=== PATIENT | female | born 1965 | race Caucasian/White ===

== ENCOUNTER 2016-06-01 22:41 | Inpatient (IN) ==
[2016-06-01] MEDS ORDERED: Naloxone 0.4 MG/ML INJ IVP ONE (22:52)
--- NOTE | 2016-06-01 22:56 | Emergency Department Note ---
Disposition Clinical Impression: LINNEA (acute kidney injury) Accidental opiate poisoning Qualifiers: Encounter type: initial encounter Qualified Code(s): T40.601A - Poisoning by unspecified narcotics, accidental (unintentional), initial encounter Pneumonia Qualifiers: Pneumonia type: aspiration pneumonia Aspiration pneumonia type: due to vomit Laterality: right Lung location: upper lobe of lung Qualified Code(s): J69.0 - Pneumonitis due to inhalation of food and vomit Disposition: Admitted As Inpatient Condition: Good Time of Disposition: 01:50 Altered Mental Status HPI - General Chief Complaint: ED Altered Mental Status Stated Complaint: Lethargic / AMS Time Seen by Provider: 06/01/16 22:52 Source: family, EMS Mode of arrival: EMS Limitations: no limitations Nursing Notes Reviewed: Yes Vital Signs Reviewed: Yes - History of Present Illness HPI Narrative: 50-year-old female with extensive history of head and neck cancer arrives to [facility] emergency department after the states that she has not been awake like she normally is. The patient was recently started on new pain medication. She is a tracheostomy patient. The patient also has prescribed fentanyl patches. Upon arrival to the emergency department the patient is somnolent but arousable. Her O2 sat is 65%. She was immediately suctioned in her tracheostomy as well as ministered point for IV Narcan. The patient immediately woke up and was answering questions. Her O2 sat is currently 98%. Initial glucose was 124 by EMS. MD complaint: altered mental status Onset (ago): unknown Timing confirmed by: spouse Context: cancer Associated symptoms: Reports: denies other symptoms Treatments prior to arrival: IV fluid - Related Data Home Medications Medication Instructions Recorded Confirmed Gabapentin 500 mg PO Q8H 12/16/15 04/18/16 Aspirin [Lo-Dose Aspirin EC] 81 mg PO DAILY 03/15/16 04/18/16 Atorvastatin [Lipitor] 40 mg PO HS 03/15/16 04/18/16 Fluticasone/Salmeterol [Advair 1 each IH DAILY 03/15/16 04/18/16 100-50 Diskus] Ipratropium/Albuterol Sulfate 4 gm IH QID 03/15/16 04/18/16 [Combivent Respimat Inhal [place]] Metoprolol [Lopressor] 25 mg PO BID 03/15/16 04/18/16 Mometasone/Formoterol [Dulera 100 13 gm IH DAILY 03/15/16 04/18/16 Mcg/5 Mcg Inhaler] Nut.tx.comp. Immune Systm,Reg 1 unit GTUBE 5XD 03/15/16 04/18/16 [Pivot 1.5 Bhavin] Polyethylene Glycol 1000 1 pack PO DAILY 03/15/16 04/18/16 [Polyethylene Glycol] Sennosides [Senokot] 8.6 mg PO DAILY 03/15/16 04/18/16 OxyCODONE Immed Rel [Roxicodone 15 30 mg PO Q4H PRN 03/29/16 04/18/16 MG] Previous Rx's Medication Instructions Recorded Acetaminophen 15 ml PO TID PRN #120 ml 03/15/16 Supplies [SUPPLIES] 1 each GTUBE Q4D #120 each 04/06/16 Dexamethasone [Decadron] 1 tab PO BID #10 tablet 04/10/16 Magic Mouthwash 5 ml PO TID PRN #240 mls 04/10/16 Omeprazole [PriLOSEC] 20 mg PO DAILY #30 cap 04/10/16 Ondansetron HCl [Zofran] 4 mg PO Q6H PRN #30 tablet 04/10/16 Prochlorperazine Maleate 10 mg PO Q6HR #30 tablet 04/10/16 [Compazine] Desitin (Zinc Oxide) [Desitin] 1 appl TP BID #1 tube 04/18/16 HydrOXYzine Pamoate [Vistaril] 100 mg PO DAILY #30 capsule 04/18/16 Dexamethasone [Decadron] 4 mg PO DAILY #30 tab 04/25/16 Polyethylene Glycol 3350 [MiraLAX 1 scoop PO DAILY #1 tub 05/01/16 Powder Bulk 17.9 Oz] Magnesium Citrate [Citroma] 296 ml PO DAILY #2 solution 05/02/16 Escitalopram [Lexapro] 10 mg PO DAILY #30 tablet 05/09/16 Citalopram [CeleXA] 20 mg PO DAILY #30 tablet 05/16/16 Fluconazole [Diflucan] 100 mg PO DAILY #7 tablet 05/26/16 Sucralfate [Carafate] 1 gm PO QIDAC #90 tablet 05/26/16 Allergies Allergy/AdvReac Type Severity Reaction Status Date / Time levofloxacin [From Levaquin] AdvReac Intermediate Anxiety Verified 04/03/16 16: 42 Limitations: ROS unobtainable due to patients medical condition Past Medical History - Past Medical History Attestation: Yes The following information was validated with the patient. Source: patient, old records reviewed Medical history: Reports: cancer (Head and neck), COPD, TIA Surgical history: Reports: no surgical history Psychiatric history: Reports: no psych history - Social History Smoking Status: Current every day smoker Smokeless Tobacco Status: No Alcohol use: Reports: none Drug use: Reports: none Physical Exam Physical Exam: General: Patient is somnolent HEENT: Head normal inspection, Miosis noted Chest: Nontraumatic, nontender, normal chest rise CV: RRR with no murmurs, rubs, gallops Respiratory: Coarse breath sounds bilaterally, tracheostomy is thick secretions Abdomen: Normal inspection, Normal bowel sounds 4 quadrants, nontender to palpation : Patient deferred Extremities: Normal inspection, full range of motion, appropriate pulses, capillary refill under 2 seconds Neurological: Patient somnolent, cranial nerves II through XII grossly intact, GCS 12 Skin: Warm, intact, no rashes noted - General Limitations: no limitations General appearance: alert Course Vital Signs Temperature 98.9 F 06/01/16 22:49 Pulse Rate 135 06/01/16 22:49 Respiratory Rate 16 06/01/16 22:49 Blood Pressure 116/72 06/01/16 22:49 O2 Sat by Pulse Oximetry 97 06/01/16 22:49 Temperature 98.6 F 06/02/16 03:15 Pulse Rate 114 06/02/16 03:15 Respiratory Rate 22 06/02/16 03:15 Blood Pressure 114/76 06/02/16 03:15 O2 Sat by Pulse Oximetry 100 06/02/16 03:15 Oxygen Delivery Oxygen Delivery Room Air Altered Mental Status - MDM Narrative Medical decision making narrative: Patient's findings on chest x-ray consistent with Suly of pneumonia. The patient did receive Narcan which did wake her up. She still remains quite agitated. She is beginning to call about this time. Given the patient's symptoms and her history the family does not feel comfortable with taking care of the patient at home. We will admit the patient to the hospital at this time. We will obtain CBC and BMP. An additional collected blood culture and administer IV clindamycin. Family agrees to plan. - Lab Data Lab results reviewed: Yes I reviewed the patient's lab results. Result diagrams: 06/02/16 00:53 06/02/16 00:53 Lab Results 06/02/16 06/02/16 06/02/16 Range/Units 00:53 00:53 02:23 WBC 2.8 L (4.3-11.1) K/mcL RBC 4.15 (3.82-4.97) M/mcL Hgb 11.6 (11.5-15.4) g/dL Hct 35.5 (35.3-44.9) % MCV 85.5 (83.0-100.0) fL MCH 28.0 (28.0-33.3) pg MCHC 32.7 (31.6-35.5) g/dL RDW 18.5 H (11.5-14.5) % Plt Count 155 (140-400) K/mcL MPV 10.4 (9.4-12.4) fL Immature Gran % 0.7 (0-4) % Seg Neutrophils % 88.0 % Lymphocytes % 2.1 % Monocytes % 9.2 % Eosinophils % 0.0 % Basophils % 0.0 % Neutrophils # 2.5 (1.6-8.9) K/mcL Lymphocytes # 0.1 L (0.6-4.6) K/mcL Monocytes # 0.3 (0.0-1.3) K/mcL Eosinophils # 0.0 (0.0-0.6) K/mcL Basophils # 0.0 (0.0-0.2) K/mcL Nucleated RBCs/100 WBC 0.7 H (0) /100 WBC Reactive Lymphocytes Present A (Not Present) Toxic Granulation Present A (Not Present) Platelet Estimate Normal (Normal) Large Platelets Present A (Not Present) Sodium 139 (136-145) mEq/L Potassium 4.3 (3.5-4.5) mEq/L Chloride 99 (98-109) mEq/L Carbon Dioxide 26 (19-29) mEq/L BUN 64 H (7-20) mg/dL Creatinine 2.16 H (0.57-1.11) mg/dL Est GFR ( Amer) 29 L (> 60) Est GFR (Non-Af Amer) 24 L (> 60) BUN/Creatinine Ratio 30 H (6-26) Glucose 107 H (70-99) mg/dL Calculated Osmolality 307 H (280-300) Lactic Acid 2.3 H (0.5-2.2) mmol/L Calcium 7.7 L (8.6-10.8) mg/dL - Radiology Data Radiology results reviewed: Yes I reviewed the patient's radiology results. Attestation Statement - Attestation Attestation: Dr Jain note: Pt seen in conjunction w/ resident Dr Mills; Please see his charting for complete documentation; I spent face to face time w/the pt and agree w/ the pt' s treatment and disposition; cxr results reviewed; sats normal s/p narcan in the ER; admitted in stablized/improved condition, but pt's poor prognosis due to her underlying condition remains;
[2016-06-02] MEDS ORDERED: Clindamycin 300 MG in D5% in Water 50 ML IVPB ONE (00:01)
[2016-06-02 01:00] LABS: Hematocrit 35.5 % (35.3-44.9); Hemoglobin 11.6 g/dL (11.5-15.4); Immature Granulocytes % 0.7 % (0-4); Lymphocytes # 0.1 K/mcL (0.6-4.6); Lymphocytes % 2.1 %; Mean Corpuscular HGB Conc 32.7 g/dL (31.6-35.5); Mean Corpuscular Volume 85.5 fL (83.0-100.0); Mean Platelet Volume 10.4 fL (9.4-12.4); Monocytes # 0.3 K/mcL (0.0-1.3); Monocytes % 9.2 %; Neutrophils # 2.5 K/mcL (1.6-8.9); Nucleated Red Blood Cells 0.7 /100 WBC (0); Platelet Count 155 K/mcL (140-400); Red Blood Count 4.15 M/mcL (3.82-4.97); Red Cell Distribution Width 18.5 % (11.5-14.5)
[2016-06-02 01:14] LABS: Calcium 7.7 mg/dL (8.6-10.8); Potassium 4.3 mEq/L (3.5-4.5)
[2016-06-02 01:18] LABS: Large Platelets Present (Not Present); Platelet Estimate Normal (Normal); Reactive Lymphocytes Present (Not Present); Toxic Granulation Present (Not Present)
[2016-06-02] MEDS ORDERED: 0.9 % Sodium Chloride 1,000 ML IVC ONE ×2 (01:49→02:54)
[2016-06-02] MEDS ORDERED: 0.9 % Sodium Chloride 1,000 ML IVC SCH (03:00)
--- NOTE | 2016-06-02 05:38 | Internal Med History&Physical ---
Date of Encounter: 06/02/16 Time of Encounter: 04:00 Assessment and Plan (1) Accidental opiate poisoning Current visit: Yes Status: Acute Possible accidental overdose of opiate pain medications. Pt responded to Narcan in the emergency department. Patient has no pinpoint pupils and respiratory rate is normal. Will monitor and avoid further narcotics time. Qualifiers: Encounter type: initial encounter Qualified Code(s): T40.601A - Poisoning by unspecified narcotics, accidental (unintentional), initial encounter (2) Pneumonia Current visit: Yes Status: Acute Suspicion for aspiration pneumonia. Obtain sputum cultures. Treat with vancomycin and Zosyn. Qualifiers: Pneumonia type: aspiration pneumonia Aspiration pneumonia type: unspecified Laterality: left Lung location: unspecified part of lung Qualified Code(s): J69.0 - Pneumonitis due to inhalation of food and vomit (3) Sepsis Current visit: Yes Status: Acute Likely secondary to pneumonia. Lactate is elevated. Patient is on intravenous normal saline and IV antibiotics. Recheck lactate. Qualifiers: Sepsis type: sepsis due to unspecified organism Qualified Code(s): A41.9 - Sepsis, unspecified organism (4) LINNEA (acute kidney injury) Current visit: Yes Status: Acute Likely secondary to prerenal cause/infection/volume depletion. Treat with IV fluids and monitor renal function. (5) Acute respiratory failure with hypoxia Current visit: Yes Status: Acute Likely secondary to pneumonia/aspiration/Opiate overdose leading to respiratory depression. O2 sats improved with narcan and suction of the tracheostomy. Continue supplemental O2 (6) Retromolar cancer Current visit: Yes Status: Chronic On radiation therapy. (7) Unresponsive state Current visit: Yes Status: Acute Likely due to opiate excess. Responded to Narcan. Monitor neurological status. (8) DVT prophylaxis Current visit: Yes Status: Acute subQ heparin Internal Medicine - H&P: HPI Chief complaint: Somnulent; hypoxia Admitted From: Emergency Dept Plans for Post Hospital Care: Home History of present illness: Ms. 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 She follows with pain management team based at [place]. Patient is unable to give clinical details. Her at the bedside, gave details. I discussed with the ER provider and reviewed the relevant records. She apparently has been taking a lot of pain medications pt does not know the exact quantities (as the pt keeps the medications in a safe and she does not tell him details of her pain meds). She had no suicidal overdose of medications in the past. She was brought to the emergency department after the noticed that she has not been awake like she normally is. The patient was apparently recently started on new pain medication. Upon arrival to the emergency department the patient was apparently somnolent but arousable. Her O2 sats: 65%. She was immediately suctioned in her tracheostomy and IV Narcan was administered. The patient immediately woke up and was answering questions. Initial glucose check was 124 by EMS. CXR in the ER was suspicious for pneumonia - aspiration was considered and was given clindamycin. She is admitted to the hospitalist service for further management. Patient is very somnolent at the time of my evaluation and is not able to give clinical details. Review of systems, social history and family history could not be verified with the pt,due to her clinical status. Her however indicates that the patient smokes about 3 cigarettes a day. Past Med Surg Social Fam HX - Past Medical History Medical history: cancer, COPD, TIA Psychiatric history: no psych history - Past Surgical History Surgical History: no surgical history - Social History Smoking Status: Current every day smoker Smokeless Tobacco Status: No Alcohol use: none Drug use: none - Family History Brother Hx Family Cardiac Disorders: Yes (Most family members have peripheral arterial disease and are also smokers) Internal Medicine - H&P: Meds Gabapentin 500 mg PO Q8H 12/16/15 [History] Acetaminophen 15 ml PO TID PRN #120 ml 03/15/16 [Rx] Aspirin [Lo-Dose Aspirin EC] 81 mg PO DAILY 03/15/16 [History] Atorvastatin [Lipitor] 40 mg PO HS 03/15/16 [History] Fluticasone/Salmeterol [Advair 100-50 Diskus] 1 each IH DAILY 03/15/16 [History] Ipratropium/Albuterol Sulfate [Combivent Respimat Inhal [place]] 4 gm IH QID 03/15 [History] Metoprolol [Lopressor] 25 mg PO BID 03/15/16 [History] Mometasone/Formoterol [Dulera 100 Mcg/5 Mcg Inhaler] 13 gm IH DAILY 03/15/16 [ History] Nut.tx.comp. Immune Systm,Reg [Pivot 1.5 Bhavin] 1 unit GTUBE 5XD 03/15/16 [History ] Polyethylene Glycol 1000 [Polyethylene Glycol] 1 pack PO DAILY 03/15/16 [History ] Sennosides [Senokot] 8.6 mg PO DAILY 03/15/16 [History] OxyCODONE Immed Rel [Roxicodone 15 MG] 30 mg PO Q4H PRN 03/29/16 [History] Supplies [SUPPLIES] 1 each GTUBE Q4D #120 each 04/06/16 [Rx] Dexamethasone [Decadron] 1 tab PO BID #10 tablet 04/10/16 [Rx] Magic Mouthwash 5 ml PO TID PRN #240 mls 04/10/16 [Rx] Omeprazole [PriLOSEC] 20 mg PO DAILY #30 cap 04/10/16 [Rx] Ondansetron HCl [Zofran] 4 mg PO Q6H PRN #30 tablet 04/10/16 [Rx] Prochlorperazine Maleate [Compazine] 10 mg PO Q6HR #30 tablet 04/10/16 [Rx] Desitin (Zinc Oxide) [Desitin] 1 appl TP BID #1 tube 04/18/16 [Rx] HydrOXYzine Pamoate [Vistaril] 100 mg PO DAILY #30 capsule 04/18/16 [Rx] Dexamethasone [Decadron] 4 mg PO DAILY #30 tab 04/25/16 [Rx] Polyethylene Glycol 3350 [MiraLAX Powder Bulk 17.9 Oz] 1 scoop PO DAILY #1 tub 05/01/16 [Rx] Magnesium Citrate [Citroma] 296 ml PO DAILY #2 solution 05/02/16 [Rx] Escitalopram [Lexapro] 10 mg PO DAILY #30 tablet 05/09/16 [Rx] Citalopram [CeleXA] 20 mg PO DAILY #30 tablet 05/16/16 [Rx] Fluconazole [Diflucan] 100 mg PO DAILY #7 tablet 05/26/16 [Rx] Sucralfate [Carafate] 1 gm PO QIDAC #90 tablet 05/26/16 [Rx] Allergies levofloxacin [From Levaquin] Adverse Reaction (Intermediate, Verified 04/03/16 16:42) Anxiety ROS unobtainable: due to mental status - Constitutional Vitals: Temp Pulse Resp BP Pulse Ox 98.6 F 114 22 114/76 100 06/02/16 03:15 06/02/16 03:15 06/02/16 03:15 06/02/16 03:15 06/02/16 03:15 Exam: General: Somnulent - not arousable to verbal commands HEENT: Pupils normal size, reactive to light. No conjunctival palor or scleral icterus Neck: There is evidence of her surgical scar on the right side of the neck; changes of radiation therapy; tracheostomy with trach collar Lungs: Clear to auscultation Cardiac: Regular rate and rhythm. No significant murmurs Abdomen: Soft, non tender. Bowel sounds present. PEG tube in place Genitourinary: No raza catheter Neurological: Somnulent; not responsive to verbal commands Psych: Somnulent Extremities: no significant leg edema Skin: No generalized rash Internal Med - H&P Results - Labs CBC & Chem 7: 06/02/16 00:53 06/02/16 00:53 - Impressions ITS Impressions Chest X-Ray 06/01/16 22:56 IMPRESSION: Left perihilar infiltrate consistent with a pneumonia. D/ / Kyle Tabares MD / Kyle Tabares MD Interpreting Provider: Kyle Tabares MD
[2016-06-02] MEDS ORDERED: Naloxone 0.4 MG/ML INJ IVP PRN (05:40)
[2016-06-02] MEDS ORDERED: Ipratropium/Albuterol Neb 3 ML IH PRN (05:45)
[2016-06-02] MEDS ORDERED: Vancomycin 500 MG in D5% in Water 250 ML IVPB SCH (06:00)
[2016-06-02] MEDS ORDERED: Vancomycin 500 MG in D5% in Water (Mini-Bag+) 100 ML IVPB ONE (06:00)
[2016-06-02 06:01] LABS: Basophils % 0.3 %; Hematocrit 32.4 % (35.3-44.9); Hemoglobin 10.5 g/dL (11.5-15.4); Immature Granulocytes % 0.5 % (0-4); Lymphocytes # 0.1 K/mcL (0.6-4.6); Lymphocytes % 2.7 %; Mean Corpuscular HGB Conc 32.4 g/dL (31.6-35.5); Mean Corpuscular Hemoglobin 27.7 pg (28.0-33.3); Mean Corpuscular Volume 85.5 fL (83.0-100.0); Mean Platelet Volume 10.3 fL (9.4-12.4); Monocytes # 0.2 K/mcL (0.0-1.3); Monocytes % 4.9 %; Neutrophils # 3.4 K/mcL (1.6-8.9); Platelet Count 130 K/mcL (140-400); Red Blood Count 3.79 M/mcL (3.82-4.97); Red Cell Distribution Width 18.5 % (11.5-14.5); Segmented Neutrophils % 91.6 %
[2016-06-02] MEDS: *HR* Heparin 5,000 UNIT/ML VIAL SQ SCH ×2 (06:12→18:43)
[2016-06-02 06:31] LABS: Albumin 2.1 g/dL (3.5-5.0); Albumin/Globulin Ratio 0.8 (1.1-2.2); Bilirubin,Total 0.8 mg/dL (0.2-1.2); Calcium 7.2 mg/dL (8.6-10.8); Globulin 2.5 g/dL (2.4-3.5); Magnesium 1.8 mg/dL (1.6-2.6); Potassium 4.2 mEq/L (3.5-4.5); Total Protein 4.6 g/dL (6.0-8.3)
[2016-06-02 06:38] LABS: Large Platelets Present (Not Present); Platelet Estimate Normal (Normal); Toxic Granulation Present (Not Present); Toxic Vacuolation Present (Not Present)
[2016-06-02 06:39] LABS: Anisocytosis 1+ (Not Present); Reactive Lymphocytes Present (Not Present)
[2016-06-02] MEDS: Piperacillin/Tazobactam 3.375 GM in D5% in Water (Mini-Bag+) 100 ML IVPB SCH ×2 (07:45→18:28)
[2016-06-02] MEDS ORDERED: Piperacillin/Tazobactam 2.25 GM in D5% in Water (Mini-Bag+) 100 ML IVPB SCH (08:00)
[2016-06-02 08:04] LABS: ABG Base Excess 1.6 mEq/L (-2.0 to 3.0); ABG Oxygen Saturation 98 % (95-98); ABG PCO2 59 mmHg (35-45); ABG PO2 120 mmHg (85-104); ABG TCO2 30.8 mEq/L (20-26)
[2016-06-02 08:05] LABS: Blood Gas FiO2 98 %
--- NOTE | 2016-06-02 08:43 | Event Note ---
Date of Encounter: 06/02/16 Time of Encounter: 08:42 50-year-old female with history of floor of mouth/retromolar trigone cancer status post surgical excision and radiation, was brought in by family with complaints of somnolence and lethargy and was noted to be in hypoxic respiratory failure. Patient seen and examined. Unable to report any history due to altered mental status. Chest-S1, S2 heard. Lungs with decreased breath sounds at bilateral bases. Abdomen-soft, nondistended, PEG tube in place The patient has been started on IV hydration and proximal spectrum IV antibiotics for suspected aspiration pneumonia. Follow-up blood cultures. Continue supplemental oxygen as needed, currently on trach collar, wean down FiO2 as tolerated. Acute toxic/metabolic encephalopathy likely due to accidental overdosing of narcotic pain medications at home. We will hold sedative/hypnotics at this time and continue to monitor closely. Patient does respond to doses of IV Narcan as needed. Acute kidney injury, likely related to prerenal etiology. Continue IV hydration and monitor serum creatinine closely.
[2016-06-02] MEDS ORDERED: Naloxone 0.4 MG/ML INJ IVP ONE (09:00)
[2016-06-02 09:23] LABS: Hepatitis A Antibody IgM Nonreactive (Nonreactive); Hepatitis B Core IgM Nonreactive (Nonreactive); Hepatitis B Surface Antigen Nonreactive (Nonreactive); Hepatitis C Virus Antibody Nonreactive (Nonreactive)
[2016-06-02] MEDS ORDERED: Vancomycin 1 EACH in D5% in Water 250 ML IVPB PRN (11:00)
[2016-06-02] MEDS: 0.9 % Sodium Chloride 1,000 ML IVC SCH (14:00)
[2016-06-02 15:06] LABS: INR 2.3; Prothrombin Time 25.9 Seconds (9.4-12.1)
[2016-06-03] MEDS: 0.9 % Sodium Chloride 1,000 ML IVC SCH ×2 (01:34→18:35)
[2016-06-03 05:45] LABS: Basophils % 0.2 %; Eosinophils % 0.2 %; Hematocrit 31.8 % (35.3-44.9); Hemoglobin 10.2 g/dL (11.5-15.4); Immature Granulocytes % 0.6 % (0-4); Lymphocytes # 0.2 K/mcL (0.6-4.6); Lymphocytes % 5.1 %; Mean Corpuscular HGB Conc 32.1 g/dL (31.6-35.5); Mean Corpuscular Hemoglobin 27.3 pg (28.0-33.3); Mean Corpuscular Volume 85.3 fL (83.0-100.0); Monocytes # 0.2 K/mcL (0.0-1.3); Monocytes % 4.9 %; Neutrophils # 4.2 K/mcL (1.6-8.9); Nucleated Red Blood Cells 0.4 /100 WBC (0); Platelet Count 112 K/mcL (140-400); Red Blood Count 3.73 M/mcL (3.82-4.97); Red Cell Distribution Width 18.8 % (11.5-14.5)
[2016-06-03 06:01] LABS: Albumin/Globulin Ratio 0.7 (1.1-2.2); Calcium 7.6 mg/dL (8.6-10.8); Globulin 2.7 g/dL (2.4-3.5); Potassium 3.5 mEq/L (3.5-4.5); Total Protein 4.7 g/dL (6.0-8.3)
[2016-06-03 06:08] LABS: Platelet Estimate Slight Decrease (Normal)
[2016-06-03] MEDS: *HR* Heparin 5,000 UNIT/ML VIAL SQ SCH ×2 (06:10→18:02)
[2016-06-03] MEDS: Piperacillin/Tazobactam 3.375 GM in D5% in Water (Mini-Bag+) 100 ML IVPB SCH ×2 (06:10→18:02)
[2016-06-03] MEDS ORDERED: Vancomycin 750 MG in D5% in Water 250 ML IVPB ONE (07:00)
[2016-06-03 20:36] LABS: Bilirubin,Urine Negative (Negative); Blood,Urine Negative (Negative); Clarity,Urine Clear (Clear); Color,Urine Yellow (Yellow); Glucose,Urine (UA) Normal (Normal); Ketones,Urine Negative (Negative); Leukocyte Esterase,Urine Negative (Negative); Nitrite,Urine Negative (Negative); PH,Urine 6.5 pH Units (5.0-8.0); Protein,Urine Negative (Neg-Trace); Specific Gravity,Urine 1.013 (1.010-1.025); Urobilinogen,Urine Normal (Normal)
[2016-06-04] MEDS: *HR* Heparin 5,000 UNIT/ML VIAL SQ SCH ×2 (06:17→18:33)
[2016-06-04] MEDS: Piperacillin/Tazobactam 3.375 GM in D5% in Water (Mini-Bag+) 100 ML IVPB SCH ×2 (06:17→18:32)
[2016-06-04 07:38] LABS: INR 1.4; Prothrombin Time 15.1 Seconds (9.4-12.1)
[2016-06-04 07:47] LABS: Albumin/Globulin Ratio 0.6 (1.1-2.2); Bilirubin,Total 0.9 mg/dL (0.2-1.2); Calcium 8.5 mg/dL (8.6-10.8); Globulin 3.1 g/dL (2.4-3.5); Potassium 2.7 mEq/L (3.5-4.5); Total Protein 5.1 g/dL (6.0-8.3)
[2016-06-04] MEDS ORDERED: Aminoglycoside Consult 1 EACH MC ONE (08:27)
[2016-06-04] MEDS ORDERED: Vancomycin 750 MG in D5% in Water 250 ML IVPB ONE (09:00)
--- NOTE | 2016-06-04 10:21 | Internal Med Progress Note ---
Date of Encounter: 06/04/16 Time of Encounter: 10:18 - Assessment and plan (1) Hypernatremia Current Visit: Yes Status: Acute Assessment and plan: Likely due to dehydration. We will increase free water via PEG tube and start half normal saline. Serum potassium is noted to be low likely due to poor oral intake, will supplement with oral and IV potassium chloride. (2) Pneumonia Current Visit: Yes Status: Acute Assessment and plan: SHe improved clinically but continues to require supplemental oxygen. Blood cultures remain negative. We will hold vancomycin and continue IV Zosyn for now. Physical therapy evaluation noted, recommend placement in extended care facility. visitor services representative consult. Qualifiers: Pneumonia type: aspiration pneumonia Aspiration pneumonia type: unspecified Laterality: left Lung location: unspecified part of lung Qualified Code(s): J69.0 - Pneumonitis due to inhalation of food and vomit (3) Accidental opiate poisoning Current Visit: Yes Status: Acute Assessment and plan: Patient came in with acute toxic/metabolic encephalopathy likely due to overdosing on narcotic pain medications along with underlying acute renal failure. Improving mental status at this time. Qualifiers: Encounter type: initial encounter Qualified Code(s): T40.601A - Poisoning by unspecified narcotics, accidental (unintentional), initial encounter (4) Acute respiratory failure Current Visit: Yes Status: Acute Assessment and plan: Likely due to aspiration pneumonia. Continues to require supplemental oxygen via trach collar. Continue trach care and wean down FiO2 as tolerated. Continue IV Zosyn. Qualifiers: Respiratory failure complication: hypoxia Qualified Code(s): J96.01 - Acute respiratory failure with hypoxia (5) Acute encephalopathy Current Visit: Yes Status: Acute Assessment and plan: Improving mental status, currently noted to be at baseline. Able to communicate through writing. Continue to treat underlying conditions and supportive care. (6) COPD (chronic obstructive pulmonary disease) Current Visit: Yes Status: Chronic Assessment and plan: Not noted to be in acute exacerbation. Continue when necessary bronchodilators and supplemental oxygen as needed. Continue home medications. Qualifiers: COPD type: unspecified COPD Qualified Code(s): J44.9 - Chronic obstructive pulmonary disease, unspecified (7) LINNEA (acute kidney injury) Current Visit: Yes Status: Acute Assessment and plan: Could be related to dehydration and underlying infection. Serum creatinine continues to improve, continue IV hydration. (8) Head and neck cancer Current Visit: No Status: Acute (9) Transaminitis Current Visit: Yes Status: Acute Assessment and plan: Liver enzymes and INR noted to be improving, likely related to drug-induced hepatitis. Case discussed with GI, recommend to monitor LFTs and INR and check hepatitis profile/EBV antibodies; - Subjective Interval history: Patient appears more awake and oriented today. Unable to speak clearly due to tracheostomy but is able to communicate through writing. He reports no pain or shortness of breath. Continues to require oxygen. Requests to drink water. - Constitutional Vitals: Temp Pulse Resp BP Pulse Ox 97.8 F 70 16 147/78 97 06/04/16 07:25 06/04/16 07:25 06/04/16 07:25 06/04/16 07:25 06/04/16 07:25 General appearance: Present: A&O X 2, answers questions appropriately - Respiratory Respiratory exam: Present: rales (Faint inspiratory crackles at left base). Absent: accessory muscle use, rhonchi, wheezes - Cardiovascular Cardiovascular exam: Present: RRR, +S1, +S2. Absent: diastolic murmur, gallop, rubs, systolic murmur - GI/Abdominal GI/Abdominal exam: Present: normal bowel sounds, soft, no peritoneal signs. Absent: distended, tenderness - Extremities Exam Extremities exam: Present: full ROM, warm, radial pulses palpable and symetrical. Absent: calf tenderness, cyanotic, pedal edema Internal Medicine: Result - Labs CBC & Chem 7: 06/03/16 05:36 06/04/16 06:16 Labs: BMP 06/04/16 06:16 Sodium 148 H Potassium 2.7 L Chloride 109 Carbon Dioxide 30 H BUN 51 H Creatinine 1.21 H Glucose 131 H Calcium 8.5 L Liver Function 06/04/16 Range/Units 06:16 Total Bilirubin 0.9 (0.2-1.2) mg/dL AST 471 H (5-34) Units/L ALT 2644 H (0-55) Units/L Alkaline Phosphatase 132 H (38-126) Units/L Albumin 2.0 L (3.5-5.0) g/dL Urine 06/03/16 Range/Units 20:20 Urine Color Yellow (Yellow) Urine Clarity Clear (Clear) Urine pH 6.5 (5.0-8.0) pH Units Ur Specific [place] 1.013 (1.010-1.025) Urine Protein Negative (Neg-Trace) mg/dL Urine Glucose (UA) Normal (Normal) mg/dL - ABG Interpretation ABG results: ABG ABG pH 7.30 pH Units (7.32-7.45) L 06/02/16 07:57 ABG pCO2 59 mmHg (35-45) H 06/02/16 07:57 ABG pO2 120 mmHg (85-104) H 06/02/16 07:57 ABG O2 Saturation 98 % (95-98) 06/02/16 07:57 PT/INR, D-dimer PT 15.1 Seconds (9.4-12.1) H 06/04/16 06:16 Consult Discharge Plan - Plan Referrals: NO,PCP [Primary Care Provider] -
[2016-06-04] MEDS ORDERED: Ondansetron 4 MG/2 ML VIAL IVP PRN (10:46)
[2016-06-05 05:06] LABS: INR 1.3
[2016-06-05 05:16] LABS: Alanine Aminotransferase 1626 Units/L (0-55); Albumin/Globulin Ratio 0.6 (1.1-2.2); Alkaline Phosphatase 127 Units/L (38-126); Aspartate Amino Transferase 146 Units/L (5-34); BUN/Creatinine Ratio 47 (6-26); Calcium 8.4 mg/dL (8.6-10.8); Carbon Dioxide 35 mEq/L (19-29); Chloride 96 mEq/L (98-109); Globulin 3.2 g/dL (2.4-3.5); Glucose 59 mg/dL (70-99); Osmolality,Calculated 297 (280-300); Total Protein 5.1 g/dL (6.0-8.3); eGFR For African Americans > 60 (> 60); eGFR For Non-African Americans > 60 (> 60)
[2016-06-05 05:22] LABS: Albumin 1.9 g/dL (3.5-5.0); Blood Urea Nitrogen 38 mg/dL (7-20); Sodium 140 mEq/L (136-145)
[2016-06-05 05:30] LABS: Potassium 2.3 mEq/L (3.5-4.5)
[2016-06-05] MEDS ORDERED: Potassium Chloride 40 MEQ, Lidocaine 1% 2 ML in D5% in Water 500 ML IVPB ONE (06:00)
[2016-06-05] MEDS: Piperacillin/Tazobactam 3.375 GM in D5% in Water (Mini-Bag+) 100 ML IVPB SCH ×2 (06:14→15:01)
[2016-06-05] MEDS: *HR* Heparin 5,000 UNIT/ML VIAL SQ SCH ×2 (06:15→16:16)
[2016-06-05] MEDS ORDERED: Potassium Chloride Elixir 20 MEQ/15 ML UDC PO ONE ×2 (09:26→14:00)
--- NOTE | 2016-06-05 09:43 | Internal Med Progress Note ---
Date of Encounter: 06/05/16 Time of Encounter: 09:41 - Assessment and plan (1) Hypokalemia Status: Acute Assessment and plan: due to GI losses due to emesis; supplement with potassium chloride via IV and G- tube and recheck potassium; (2) Hypernatremia Status: Acute Assessment and plan: improving currently; likely due to dehydration; (3) Pneumonia Status: Acute Assessment and plan: O2 requirements improving; continue IV antibiotics and supportive care with supplemental O2; PT evaluation recommends SNF placement; social insurance specialist consult ; Qualifiers: Pneumonia type: aspiration pneumonia Aspiration pneumonia type: unspecified Laterality: left Lung location: unspecified part of lung Qualified Code(s): J69.0 - Pneumonitis due to inhalation of food and vomit (4) Accidental opiate poisoning Status: Acute Qualifiers: Encounter type: initial encounter Qualified Code(s): T40.601A - Poisoning by unspecified narcotics, accidental (unintentional), initial encounter (5) Acute respiratory failure Status: Acute Qualifiers: Respiratory failure complication: hypoxia Qualified Code(s): J96.01 - Acute respiratory failure with hypoxia (6) Acute encephalopathy Status: Resolved (7) COPD (chronic obstructive pulmonary disease) Status: Chronic Qualifiers: COPD type: unspecified COPD Qualified Code(s): J44.9 - Chronic obstructive pulmonary disease, unspecified (8) LINNEA (acute kidney injury) Status: Resolved (9) Head and neck cancer Status: Chronic (10) Transaminitis Status: Acute - Subjective Interval history: Improved nausea and vomiting; no chest pain, shortness of breath; reports IV burning from potassium infusion; wants to go home and refuses rehab placement; - Constitutional Vitals: Temp Pulse Resp BP Pulse Ox 98.3 F 65 18 92/50 98 06/05/16 08:32 06/05/16 08:32 06/05/16 08:32 06/05/16 08:32 06/05/16 09:24 General appearance: Present: A&O X 2, answers questions appropriately - Respiratory Respiratory exam: Present: CTAB. Absent: accessory muscle use, rales, rhonchi, wheezes - Cardiovascular Cardiovascular exam: Present: RRR, +S1, +S2. Absent: diastolic murmur, gallop, rubs, systolic murmur - GI/Abdominal GI/Abdominal exam: Present: normal bowel sounds, soft, no peritoneal signs. Absent: distended, tenderness Internal Medicine: Result - Labs CBC & Chem 7: 06/08/16 04:23 06/08/16 04:23 Labs: BMP 06/05/16 04:17 Sodium 140 D Potassium 2.3 L* Chloride 96 L Carbon Dioxide 35 H BUN 38 H D Creatinine 0.81 Glucose 59 L Calcium 8.4 L Liver Function 06/05/16 Range/Units 04:17 Total Bilirubin 1.0 (0.2-1.2) mg/dL AST 146 H (5-34) Units/L ALT 1626 H (0-55) Units/L Alkaline Phosphatase 127 H (38-126) Units/L Albumin 1.9 L (3.5-5.0) g/dL - ABG Interpretation ABG results: ABG ABG pH 7.30 pH Units (7.32-7.45) L 06/02/16 07:57 ABG pCO2 59 mmHg (35-45) H 06/02/16 07:57 ABG pO2 120 mmHg (85-104) H 06/02/16 07:57 ABG O2 Saturation 98 % (95-98) 06/02/16 07:57 PT/INR, D-dimer PT 14.0 Seconds (9.4-12.1) H 06/05/16 04:17 Consult Discharge Plan - Plan Instructions: Sepsis (DC), Pneumonia (DC) Additional Instructions: Take medications as prescribed. Follow-up with pain management, discussed current opioid regimen and reduction of narcotics. Follow-up with her primary care physician the next 3-5 days. Referrals: Maribel La, PHARMACEUTICAL COMPOUNDING SUPERVISOR [Advanced Practice Nurse] - (Web request sent 06/08/16, tried calling to set up an appointment and only recieved voicemail.) NO,PCP [Primary Care Provider] - Prescriptions: OxyCODONE Immed Rel [Roxicodone 5 MG] 5 mg PO Q6HR PRN #12 tablet PRN Reason: Pain
[2016-06-06] MEDS: Piperacillin/Tazobactam 3.375 GM in D5% in Water (Mini-Bag+) 100 ML IVPB SCH ×2 (02:39→09:00)
[2016-06-06 05:07] LABS: BUN/Creatinine Ratio 42 (6-26); Blood Urea Nitrogen 34 mg/dL (7-20); Calcium 8.3 mg/dL (8.6-10.8); Carbon Dioxide 27 mEq/L (19-29); Chloride 101 mEq/L (98-109); Glucose 96 mg/dL (70-99); Magnesium 1.2 mg/dL (1.6-2.6); Osmolality,Calculated 291 (280-300); Potassium 3.4 mEq/L (3.5-4.5); Sodium 137 mEq/L (136-145); eGFR For African Americans > 60 (> 60); eGFR For Non-African Americans > 60 (> 60)
[2016-06-06] MEDS: *HR* Heparin 5,000 UNIT/ML VIAL SQ SCH ×3 (06:12→17:21)
[2016-06-06] MEDS: Magnesium Sulfate 2 GM in D5% in Water 100 ML IVPB SCH ×2 (09:00→10:34)
[2016-06-06] MEDS: Desitin (Zinc Oxide) 56 GM TUBE TP SCH ×2 (09:00→21:13)
[2016-06-06] MEDS: Thiamine (B-1) 100 MG TABLET PO SCH (09:00)
[2016-06-06] MEDS ORDERED: Potassium Chloride Elixir 20 MEQ/15 ML UDC PO ONE (09:03)
--- NOTE | 2016-06-06 10:12 | Internal Med Progress Note ---
<Vinny Powell - Last Filed: 06/06/16 10:10> Date of Encounter: 06/06/16 Time of Encounter: 10:10 - Assessment and plan (1) Hypomagnesemia Current Visit: Yes Status: Acute Assessment and plan: Magnesium level I.2 this morning. Patient asymptomatic Plan - replace as needed. - Recheck with a.m. labs. (2) Hypokalemia Current Visit: Yes Status: Acute Assessment and plan: Hypokalemia with a potassium 3.4, previous low 2.3. Plan: - 40meq Potassium liquid once today - recheck am labs. (3) Accidental opiate poisoning Current Visit: Yes Status: Acute Assessment and plan: Patient came in with acute toxic/metabolic encephalopathy likely due to overdosing on narcotic pain medications along with underlying acute renal failure. Patient denies pain or discomforts currently. - responding appropriately. Plan: - Continue to hold pain control Qualifiers: Encounter type: initial encounter Qualified Code(s): T40.601A - Poisoning by unspecified narcotics, accidental (unintentional), initial encounter (4) Pneumonia Current Visit: Yes Status: Acute Assessment and plan: She continues to require supplemental oxygen. Clinically improved. Immunocompromised patient. Blood cultures remain negative. Plan: - Continue IV Zosyn (day 07/05 antibiotic coverage) - Continue to wean oxygen as tolerated. Qualifiers: Pneumonia type: aspiration pneumonia Aspiration pneumonia type: unspecified Laterality: left Lung location: unspecified part of lung Qualified Code(s): J69.0 - Pneumonitis due to inhalation of food and vomit (5) LINNEA (acute kidney injury) Current Visit: Yes Status: Acute Assessment and plan: Resolved. Presented with acute kidney injury in the setting of aspiration pneumonia and opiate overdose. Renal function stable. Plan: - Continue free water through G-tube with tube feedings. (6) Acute encephalopathy Current Visit: Yes Status: Acute Assessment and plan: Resolved. Suspected secondary to drug overdose and aspiration pneumonia with drug-induced hepatitis. Patient's mental status is stable. Plan: - Continue to monitor mental status - Continue treating underlying medical conditions. (7) COPD (chronic obstructive pulmonary disease) Current Visit: Yes Status: Chronic Assessment and plan: History of COPD. Currently stable. Home breathing treatments include Advair. Plan: -Continue duo nebs every 6 hours when necessary. 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 History of tongue resection with quadriceps muscle tone replacement. (9) Transaminitis Current Visit: Yes Status: Acute Assessment and plan: Liver enzymes and INR noted to be improving, likely related to drug-induced hepatitis. Patient's atorvastatin has been held. Patient is also receiving cisplatin chemotherapy which has a risk of transaminitis. Last treatment was 3 weeks ago. - INR resolving, AST ALT resolving. Plan: - Continue to hold hepatotoxic medications including atorvastatin at the time of discharge. (10) Tobacco abuse disorder Current Visit: No Status: Chronic (11) DVT prophylaxis Current Visit: Yes Status: Acute Assessment and plan: Subcutaneous heparin 5000 units twice a day - Subjective Interval history: Mrs. Baig 50-year-old female has not seen about a patient bedside. She is awake alert oriented in no acute distress. She denies any discomforts or pains or any concerns through shaking her head nodding. Her is at bed side and a supportive nature and has no further concerns. They do ask about discharge. - Constitutional Vitals: Temp Pulse Resp BP Pulse Ox 97.9 F 67 16 118/71 95 06/06/16 07:15 06/06/16 07:15 06/06/16 07:15 06/06/16 07:15 06/06/16 07:15 General appearance: Present: cooperative, A&O X 2 - Head Head exam: Present: atraumatic, normocephalic - Eye Eye exam: Present: PERRL, conjuntiva pink, sclera anicteric Pupils: Present: PERRL - ENT Additional comments: Patient is edentulous, difficulty with oral exam as patient has difficulty opening her mouth. Moist mucous membranes. - Neck Neck exam general surgery: Present: supple. Absent: lymphadenopathy - Respiratory Respiratory exam: Present: CTAB. Absent: accessory muscle use, rales, rhonchi, wheezes - Cardiovascular Cardiovascular exam: Present: RRR, +S1, +S2. Absent: diastolic murmur, gallop, rubs, systolic murmur - GI/Abdominal GI/Abdominal exam: Present: normal bowel sounds, soft, no peritoneal signs. Absent: distended, tenderness Additional comments: PEG tube in place. - Extremities Exam Extremities exam: Present: warm, radial pulses palpable and symetrical. Absent : calf tenderness, cyanotic, pedal edema Additional comments: Diffuse poor musculature for gender and age. - Neurological Exam Neurological exam: Present: alert Internal Medicine: Result - Labs CBC & Chem 7: 06/03/16 05:36 06/06/16 04:09 Labs: BMP 06/05/16 06/06/16 14:16 04:09 Sodium 137 Potassium 3.4 L D 3.4 L Chloride 101 Carbon Dioxide 27 BUN 34 H Creatinine 0.81 Glucose 96 Calcium 8.3 L - ABG Interpretation ABG results: ABG ABG pH 7.30 pH Units (7.32-7.45) L 06/02/16 07:57 ABG pCO2 59 mmHg (35-45) H 06/02/16 07:57 ABG pO2 120 mmHg (85-104) H 06/02/16 07:57 ABG O2 Saturation 98 % (95-98) 06/02/16 07:57 PT/INR, D-dimer PT 14.0 Seconds (9.4-12.1) H 06/05/16 04:17 Consult Discharge Plan - Plan Referrals: NO,PCP [Primary Care Provider] - (Patient most likely going to ECF) <Donny Smith - Last Filed: 06/06/16 16:03> Date of Encounter: 06/06/16 - Constitutional Vitals: Temp Pulse Resp BP Pulse Ox 97.6 F 67 15 109/69 98 06/06/16 11:56 06/06/16 11:56 06/06/16 11:56 06/06/16 11:56 06/06/16 11:56 Internal Medicine: Result - Labs CBC & Chem 7: 06/03/16 05:36 06/06/16 04:09 Labs: BMP 06/06/16 04:09 Sodium 137 Potassium 3.4 L Chloride 101 Carbon Dioxide 27 BUN 34 H Creatinine 0.81 Glucose 96 Calcium 8.3 L - ABG Interpretation ABG results: ABG ABG pH 7.30 pH Units (7.32-7.45) L 06/02/16 07:57 ABG pCO2 59 mmHg (35-45) H 06/02/16 07:57 ABG pO2 120 mmHg (85-104) H 06/02/16 07:57 ABG O2 Saturation 98 % (95-98) 06/02/16 07:57 PT/INR, D-dimer PT 14.0 Seconds (9.4-12.1) H 06/05/16 04:17 - Attending Attestation I examined this patient and my medical decision-making was reviewed with the [employer] [employer]/PA/Advanced Practice Nurse/Resident Physician. I agree with the documented findings, disposition and treatment plan as described except to the extent set forth below. magnesium and potassium supplemented today. Monitor electrolytes tomorrow in a.m. Continue following trend of LFTs.
[2016-06-06] MEDS ORDERED: Potassium Chloride Elixir 20 MEQ/15 ML UDC GTUBE ONE (10:34)
[2016-06-06] MEDS: Ampicillin/Sulbactam 3,000 MG in 0.9 % Sodium Chloride Mini Bag 100 ML IVPB SCH (17:21)
[2016-06-07] MEDS: Ampicillin/Sulbactam 3,000 MG in 0.9 % Sodium Chloride Mini Bag 100 ML IVPB SCH ×2 (00:23→05:29)
[2016-06-07 03:46] LABS: Hematocrit 34.1 % (35.3-44.9); Hemoglobin 11.4 g/dL (11.5-15.4); Lymphocytes # 0.4 K/mcL (0.6-4.6); Mean Corpuscular HGB Conc 33.4 g/dL (31.6-35.5); Mean Corpuscular Hemoglobin 27.5 pg (28.0-33.3); Mean Corpuscular Volume 82.4 fL (83.0-100.0); Mean Platelet Volume 12.6 fL (9.4-12.4); Platelet Count 108 K/mcL (140-400); Red Blood Count 4.14 M/mcL (3.82-4.97); Red Cell Distribution Width 19.7 % (11.5-14.5)
[2016-06-07 03:58] LABS: Alanine Aminotransferase 669 Units/L (0-55); Albumin 2.1 g/dL (3.5-5.0); Albumin/Globulin Ratio 0.7 (1.1-2.2); Alkaline Phosphatase 101 Units/L (38-126); Aspartate Amino Transferase 46 Units/L (5-34); BUN/Creatinine Ratio 37 (6-26); Bilirubin,Direct 0.3 mg/dL (0.0-0.5); Bilirubin,Indirect 0.5 mg/dL (0.0-1.2); Bilirubin,Total 0.8 mg/dL (0.2-1.2); Blood Urea Nitrogen 25 mg/dL (7-20); Carbon Dioxide 28 mEq/L (19-29); Chloride 101 mEq/L (98-109); Globulin 3.2 g/dL (2.4-3.5); Glucose 83 mg/dL (70-99); Magnesium 1.8 mg/dL (1.6-2.6); Osmolality,Calculated 286 (280-300); Potassium 3.1 mEq/L (3.5-4.5); Sodium 136 mEq/L (136-145); Total Protein 5.3 g/dL (6.0-8.3); eGFR For African Americans > 60 (> 60); eGFR For Non-African Americans > 60 (> 60)
[2016-06-07 04:22] LABS: Basophils # 0.1 K/mcL (0.0-0.2); Eosinophils # 0.1 K/mcL (0.0-0.6); Monocytes # 0.5 K/mcL (0.0-1.3); Toxic Granulation Present (Not Present)
[2016-06-07 04:23] LABS: Hypochromasia Present (Not Present); Microcytosis Present (Not Present)
[2016-06-07] MEDS: *HR* Heparin 5,000 UNIT/ML VIAL SQ SCH ×2 (05:29→17:21)
[2016-06-07] MEDS ORDERED: Potassium Chloride Elixir 20 MEQ/15 ML UDC GTUBE SCH (09:00)
[2016-06-07] MEDS: Thiamine (B-1) 100 MG TABLET PO SCH (09:04)
[2016-06-07] MEDS: *HR* OxyCODONE Immed Rel 5 MG TABLET PO PRN ×2 (09:04→20:25)
[2016-06-07 11:29] LABS: % Iron Saturation 20 % (15-50); Iron 42 mcg/dL (50-170); Transferrin 151 mg/dL (180-382)
[2016-06-07] MEDS: Desitin (Zinc Oxide) 56 GM TUBE TP SCH ×2 (12:01→20:38)
--- NOTE | 2016-06-07 12:07 | Internal Med Progress Note ---
Date of Encounter: 06/03/16 Time of Encounter: 08:00 - Assessment and plan (1) Transaminitis Status: Acute Assessment and plan: likely drug-induced; d/w GI, recommend checking PT/INR, EBV antibodies and viral Hepatitis profile; liver enzymes noted to be improving at this time; INR noted to be elevated at 2.3; continue to monitor; IV hydration; (2) LINNEA (acute kidney injury) Status: Acute Assessment and plan: serum creatinine improving with iV hydration; likely due to dehydration and prerenal azotemia; (3) Acute encephalopathy Status: Acute Assessment and plan: mental status returning to baseline; toxic metabolic encephalopathy due to narcotics, hypoxia, renal failure; (4) Accidental opiate poisoning Status: Acute Qualifiers: Encounter type: initial encounter Qualified Code(s): T40.601A - Poisoning by unspecified narcotics, accidental (unintentional), initial encounter (5) Pneumonia Status: Acute Assessment and plan: continue IV antibiotics; blood cultures so far negative; supportive care and supplemental O2; currently on O2 via trach collar; Qualifiers: Pneumonia type: aspiration pneumonia Aspiration pneumonia type: unspecified Laterality: left Lung location: unspecified part of lung Qualified Code(s): J69.0 - Pneumonitis due to inhalation of food and vomit (6) Acute respiratory failure Status: Acute Qualifiers: Respiratory failure complication: hypoxia Qualified Code(s): J96.01 - Acute respiratory failure with hypoxia (7) COPD (chronic obstructive pulmonary disease) Status: Chronic Qualifiers: COPD type: unspecified COPD Qualified Code(s): J44.9 - Chronic obstructive pulmonary disease, unspecified (8) Head and neck cancer Status: Chronic - Subjective Interval history: Noted to be awake but cannot answer much; does not provide appropriate history; reports no pain or shortness of breath; - Constitutional Vitals: Temp Pulse Resp BP Pulse Ox 97.7 F 83 17 100/59 99 06/07/16 10:48 06/07/16 10:48 06/07/16 10:48 06/07/16 10:48 06/07/16 10:48 General appearance: Present: cooperative, A&O X 1 - Respiratory Respiratory exam: Present: CTAB (coarse breath sounds B/L). Absent: accessory muscle use, rales, rhonchi, wheezes - Cardiovascular Cardiovascular exam: Present: RRR, +S1, +S2. Absent: diastolic murmur, gallop, rubs, systolic murmur - GI/Abdominal GI/Abdominal exam: Present: normal bowel sounds, soft (PEG tube in place), no peritoneal signs. Absent: distended, tenderness - Extremities Exam Extremities exam: Present: full ROM, warm, radial pulses palpable and symetrical. Absent: calf tenderness, cyanotic, pedal edema Internal Medicine: Result - Labs CBC & Chem 7: 06/08/16 04:23 06/08/16 04:23 Labs: Short CBC 06/07/16 Range/Units 03:15 WBC 6.1 (4.3-11.1) K/mcL Hgb 11.4 L (11.5-15.4) g/dL Hct 34.1 L (35.3-44.9) % Plt Count 108 L (140-400) K/mcL Neutrophils # 5.0 (1.6-8.9) K/mcL BMP 06/07/16 03:15 Sodium 136 Potassium 3.1 L Chloride 101 Carbon Dioxide 28 BUN 25 H Creatinine 0.67 Glucose 83 Calcium 8.0 L Liver Function 06/07/16 Range/Units 03:15 Total Bilirubin 0.8 (0.2-1.2) mg/dL Direct Bilirubin 0.3 (0.0-0.5) mg/dL AST 46 H (5-34) Units/L ALT 669 H (0-55) Units/L Alkaline Phosphatase 101 (38-126) Units/L Albumin 2.1 L (3.5-5.0) g/dL - ABG Interpretation ABG results: ABG ABG pH 7.30 pH Units (7.32-7.45) L 06/02/16 07:57 ABG pCO2 59 mmHg (35-45) H 06/02/16 07:57 ABG pO2 120 mmHg (85-104) H 06/02/16 07:57 ABG O2 Saturation 98 % (95-98) 06/02/16 07:57 PT/INR, D-dimer PT 14.0 Seconds (9.4-12.1) H 06/05/16 04:17 Consult Discharge Plan - Plan Instructions: Sepsis (DC), Pneumonia (DC) Additional Instructions: Take medications as prescribed. Follow-up with pain management, discussed current opioid regimen and reduction of narcotics. Follow-up with her primary care physician the next 3-5 days. Referrals: Maribel La, DESIGN VERIFICATION ENGINEER [Advanced Practice Nurse] - (Web request sent 06/08/16, tried calling to set up an appointment and only recieved voicemail.) NO,PCP [Primary Care Provider] - Prescriptions: OxyCODONE Immed Rel [Roxicodone 5 MG] 5 mg PO Q6HR PRN #12 tablet PRN Reason: Pain
[2016-06-07 12:25] LABS: Ferritin 314 ng/ml (5-204)
--- NOTE | 2016-06-07 13:28 | Internal Med Progress Note ---
<Vinny Powell - Last Filed: 06/07/16 13:26> Date of Encounter: 06/07/16 Time of Encounter: 11:00 - Assessment and plan (1) Hypomagnesemia Current Visit: Yes Status: Acute Assessment and plan: Magnesium level 1.8 after Mag replacement. Plan - replace as needed. - Recheck with a.m. labs. (2) Hypokalemia Current Visit: Yes Status: Acute Assessment and plan: Hypokalemia with a potassium 3.1 this morning after replacement yesterday Plan: - 40meq Potassium IV today - recheck am labs. (3) Accidental opiate poisoning Current Visit: Yes Status: Acute Assessment and plan: Patient came in with acute toxic/metabolic encephalopathy likely due to overdosing on narcotic pain medications along with underlying acute renal failure. Patient denies pain or discomforts currently. - responding appropriately. Plan: Starting back on 5mg Roxicodone Q6hrs for cancer pain. Qualifiers: Encounter type: initial encounter Qualified Code(s): T40.601A - Poisoning by unspecified narcotics, accidental (unintentional), initial encounter (4) Pneumonia Current Visit: Yes Status: Acute Assessment and plan: She continues to require supplemental oxygen. Clinically improved. Immunocompromised patient. Blood cultures remain negative. Plan: - Completed antibiotic coverage - Continue to wean oxygen as tolerated. Qualifiers: Pneumonia type: aspiration pneumonia Aspiration pneumonia type: unspecified Laterality: left Lung location: unspecified part of lung Qualified Code(s): J69.0 - Pneumonitis due to inhalation of food and vomit (5) LINNEA (acute kidney injury) Current Visit: Yes Status: Acute Assessment and plan: Resolved. Presented with acute kidney injury in the setting of aspiration pneumonia and opiate overdose. Renal function stable. Plan: - Continue free water through G-tube with tube feedings. (6) Acute encephalopathy Current Visit: Yes Status: Acute Assessment and plan: Resolved. Suspected secondary to drug overdose and aspiration pneumonia with drug-induced hepatitis. Patient's mental status is stable. Plan: - Continue to monitor mental status - Continue treating underlying medical conditions. (7) COPD (chronic obstructive pulmonary disease) Current Visit: Yes Status: Chronic Assessment and plan: History of COPD. Currently stable. Home breathing treatments include Advair. Plan: -Continue duo nebs every 6 hours when necessary. 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 History of tongue resection with quadriceps muscle tone replacement. (9) Transaminitis Current Visit: Yes Status: Acute Assessment and plan: Liver enzymes and INR noted to be improving, likely related to drug-induced hepatitis. Patient's atorvastatin has been held. Patient is also receiving cisplatin chemotherapy which has a risk of transaminitis. Last treatment was 3 weeks ago. - INR resolving, AST ALT resolving. Plan: - Continue to hold hepatotoxic medications including atorvastatin at the time of discharge. (10) Tobacco abuse disorder Current Visit: No Status: Chronic Assessment and plan: chronic. (11) DVT prophylaxis Current Visit: Yes Status: Acute Assessment and plan: Subcutaneous heparin 5000 units twice a day - Subjective Interval history: Mrs. Baig 50-year-old female has not seen about a patient bedside. She is awake alert oriented in no acute distress. says she has pain in her neck and face today. She denies any SOB, CP, chest pressure, abd pain, N/V/D/C. No further questions. - Constitutional Vitals: Temp Pulse Resp BP Pulse Ox 97.7 F 83 17 100/59 99 06/07/16 10:48 06/07/16 10:48 06/07/16 10:48 06/07/16 10:48 06/07/16 10:48 General appearance: Present: cooperative, A&O X 2 - Head Head exam: Present: atraumatic, normocephalic - Eye Eye exam: Present: PERRL, conjuntiva pink, sclera anicteric Pupils: Present: PERRL - ENT ENT exam: Present: mucous membranes moist Additional comments: trachostomy tube in place without drainage. - Neck Neck exam general surgery: Present: supple, trachea midline. Absent: lymphadenopathy - Respiratory Respiratory exam: Present: CTAB. Absent: accessory muscle use, rales, rhonchi, wheezes - Cardiovascular Cardiovascular exam: Present: RRR, +S1, +S2. Absent: diastolic murmur, gallop, rubs, systolic murmur - GI/Abdominal GI/Abdominal exam: Present: normal bowel sounds, soft, no peritoneal signs. Absent: distended, tenderness - Extremities Exam Extremities exam: Present: warm, radial pulses palpable and symetrical. Absent : calf tenderness, cyanotic, pedal edema Additional comments: Poor muscle distribution. - Neurological Exam Neurological exam: Present: alert, oriented X3, no focal deficits. Absent: pronater drift, facial droop, speech deficit - Psychiatric Psychiatric exam: Present: normal affect, normal mood Internal Medicine: Result - Labs CBC & Chem 7: 06/07/16 03:15 06/07/16 03:15 Labs: Short CBC 06/07/16 Range/Units 03:15 WBC 6.1 (4.3-11.1) K/mcL Hgb 11.4 L (11.5-15.4) g/dL Hct 34.1 L (35.3-44.9) % Plt Count 108 L (140-400) K/mcL Neutrophils # 5.0 (1.6-8.9) K/mcL BMP 06/07/16 03:15 Sodium 136 Potassium 3.1 L Chloride 101 Carbon Dioxide 28 BUN 25 H Creatinine 0.67 Glucose 83 Calcium 8.0 L Liver Function 06/07/16 Range/Units 03:15 Total Bilirubin 0.8 (0.2-1.2) mg/dL Direct Bilirubin 0.3 (0.0-0.5) mg/dL AST 46 H (5-34) Units/L ALT 669 H (0-55) Units/L Alkaline Phosphatase 101 (38-126) Units/L Albumin 2.1 L (3.5-5.0) g/dL - ABG Interpretation ABG results: ABG ABG pH 7.30 pH Units (7.32-7.45) L 06/02/16 07:57 ABG pCO2 59 mmHg (35-45) H 06/02/16 07:57 ABG pO2 120 mmHg (85-104) H 06/02/16 07:57 ABG O2 Saturation 98 % (95-98) 06/02/16 07:57 PT/INR, D-dimer PT 14.0 Seconds (9.4-12.1) H 06/05/16 04:17 Consult Discharge Plan - Plan Referrals: NO,PCP [Primary Care Provider] - <Donny Smith - Last Filed: 06/07/16 15:19> Date of Encounter: 06/07/16 - Constitutional Vitals: Temp Pulse Resp BP Pulse Ox 97.7 F 83 17 100/59 99 06/07/16 10:48 06/07/16 10:48 06/07/16 10:48 06/07/16 10:48 06/07/16 10:48 Internal Medicine: Result - Labs CBC & Chem 7: 06/07/16 03:15 06/07/16 03:15 Labs: Short CBC 06/07/16 Range/Units 03:15 WBC 6.1 (4.3-11.1) K/mcL Hgb 11.4 L (11.5-15.4) g/dL Hct 34.1 L (35.3-44.9) % Plt Count 108 L (140-400) K/mcL Neutrophils # 5.0 (1.6-8.9) K/mcL BMP 06/07/16 03:15 Sodium 136 Potassium 3.1 L Chloride 101 Carbon Dioxide 28 BUN 25 H Creatinine 0.67 Glucose 83 Calcium 8.0 L Liver Function 06/07/16 Range/Units 03:15 Total Bilirubin 0.8 (0.2-1.2) mg/dL Direct Bilirubin 0.3 (0.0-0.5) mg/dL AST 46 H (5-34) Units/L ALT 669 H (0-55) Units/L Alkaline Phosphatase 101 (38-126) Units/L Albumin 2.1 L (3.5-5.0) g/dL - ABG Interpretation ABG results: ABG ABG pH 7.30 pH Units (7.32-7.45) L 06/02/16 07:57 ABG pCO2 59 mmHg (35-45) H 06/02/16 07:57 ABG pO2 120 mmHg (85-104) H 06/02/16 07:57 ABG O2 Saturation 98 % (95-98) 06/02/16 07:57 PT/INR, D-dimer PT 14.0 Seconds (9.4-12.1) H 06/05/16 04:17 - Attending Attestation I examined this patient and my medical decision-making was reviewed with the [employer]/PA/Advanced Practice Nurse/Resident Physician. I agree with the documented findings, disposition and treatment plan as described except to the extent set forth below. Supplement potassium. Monitor electrolytes. Possible D/C tomorrow.
[2016-06-07 15:10] LABS: Adenovirus Qual PCR NOT DETECTED
[2016-06-07] MEDS ORDERED: Potassium Chloride 40 MEQ, Lidocaine 1% 2 ML in D5% in Water 500 ML IVPB ONE (15:10)
[2016-06-07] MEDS: Potassium Chloride Elixir 20 MEQ/15 ML UDC GTUBE SCH (20:24)
[2016-06-08] MEDS: *HR* OxyCODONE Immed Rel 5 MG TABLET PO PRN (04:45)
[2016-06-08] MEDS: *HR* Heparin 5,000 UNIT/ML VIAL SQ SCH (04:50)
[2016-06-08 05:36] LABS: Basophils % 0.2 %; Eosinophils # 0.1 K/mcL (0.0-0.6); Eosinophils % 0.9 %; Hematocrit 34.3 % (35.3-44.9); Hemoglobin 11.3 g/dL (11.5-15.4); Immature Granulocytes % 4.4 % (0-4); Lymphocytes # 0.5 K/mcL (0.6-4.6); Lymphocytes % 9.1 %; Mean Corpuscular HGB Conc 32.9 g/dL (31.6-35.5); Mean Corpuscular Hemoglobin 27.6 pg (28.0-33.3); Mean Corpuscular Volume 83.9 fL (83.0-100.0); Monocytes # 0.9 K/mcL (0.0-1.3); Neutrophils # 3.7 K/mcL (1.6-8.9); Platelet Count 140 K/mcL (140-400); Red Blood Count 4.09 M/mcL (3.82-4.97); Red Cell Distribution Width 19.8 % (11.5-14.5); Segmented Neutrophils % 68.4 %
[2016-06-08 06:04] LABS: Alanine Aminotransferase 446 Units/L (0-55); Albumin 2.1 g/dL (3.5-5.0); Albumin/Globulin Ratio 0.7 (1.1-2.2); Alkaline Phosphatase 106 Units/L (38-126); Aspartate Amino Transferase 35 Units/L (5-34); BUN/Creatinine Ratio 29 (6-26); Bilirubin,Total 0.7 mg/dL (0.2-1.2); Blood Urea Nitrogen 20 mg/dL (7-20); Calcium 8.4 mg/dL (8.6-10.8); Carbon Dioxide 21 mEq/L (19-29); Chloride 105 mEq/L (98-109); Globulin 3.2 g/dL (2.4-3.5); Glucose 76 mg/dL (70-99); Osmolality,Calculated 285 (280-300); Potassium 3.6 mEq/L (3.5-4.5); Sodium 137 mEq/L (136-145); Total Protein 5.3 g/dL (6.0-8.3); eGFR For African Americans > 60 (> 60); eGFR For Non-African Americans > 60 (> 60)
[2016-06-08 06:10] LABS: Albumin/Globulin Ratio 0.6 (1.1-2.2); Bilirubin,Direct 0.4 mg/dL (0.0-0.5); Bilirubin,Indirect 0.3 mg/dL (0.0-1.2); Bilirubin,Total 0.7 mg/dL (0.2-1.2); Globulin 3.3 g/dL (2.4-3.5); Total Protein 5.3 g/dL (6.0-8.3)
[2016-06-08 06:25] LABS: Anisocytosis 1+ (Not Present); Large Platelets Present (Not Present); Microcytosis Present (Not Present); Platelet Estimate Decreased (Normal)
[2016-06-08] MEDS: Thiamine (B-1) 100 MG TABLET PO SCH (09:22)
[2016-06-08] MEDS: Potassium Chloride Elixir 20 MEQ/15 ML UDC GTUBE SCH (09:23)
[2016-06-08] MEDS: Desitin (Zinc Oxide) 56 GM TUBE TP SCH (09:24)
[2016-06-08 09:56] VITALS: BP 138/68
--- NOTE | 2016-06-08 10:53 | Discharge Summary ---
<Vinny Powell Edward - Last Filed: 06/08/16 14:01> Date of Encounter: 06/08/16 Time of Encounter: 10:41 - Discharge Diagnosis (1) Hypomagnesemia Priority: Primary Status: Acute (2) Hypokalemia Priority: Primary Status: Acute (3) Accidental opiate poisoning Priority: Primary Status: Acute Qualifiers: Encounter type: initial encounter Qualified Code(s): T40.601A - Poisoning by unspecified narcotics, accidental (unintentional), initial encounter (4) Pneumonia Priority: Secondary Status: Acute Qualifiers: Pneumonia type: aspiration pneumonia Aspiration pneumonia type: unspecified Laterality: left Lung location: unspecified part of lung Qualified Code(s): J69.0 - Pneumonitis due to inhalation of food and vomit (5) LINNEA (acute kidney injury) Priority: Secondary Status: Acute (6) Acute encephalopathy Priority: Primary Status: Acute (7) COPD (chronic obstructive pulmonary disease) Priority: Secondary Status: Chronic Qualifiers: COPD type: unspecified COPD Qualified Code(s): J44.9 - Chronic obstructive pulmonary disease, unspecified (8) Throat cancer Priority: Primary Status: Acute (9) Transaminitis Priority: Primary Status: Acute (10) Tobacco abuse disorder Priority: Secondary Status: Chronic - Discharge Medications Prescriptions: OxyCODONE Immed Rel [Roxicodone 5 MG] 5 mg PO Q6HR PRN #12 tablet PRN Reason: Pain Home Medications: Gabapentin 250 mg PO Q8H 12/16/15 [History] Aspirin [Lo-Dose Aspirin EC] 81 mg PO DAILY 03/15/16 [History] Fluticasone/Salmeterol [Advair 100-50 Diskus] 1 puff IH Q12H 03/15/16 [History] Metoprolol [Lopressor] 12.5 mg PO BID 03/15/16 [History] Nut.tx.comp. Immune Systm,Reg [Pivot 1.5 Bhavin] 1 unit GTUBE 5XD 03/15/16 [History ] Sennosides [Senokot] 8.6 mg PO DAILY 03/15/16 [History] Magic Mouthwash 5 ml PO TID PRN #240 mls 04/10/16 [Rx] Omeprazole [PriLOSEC] 20 mg PO DAILY #30 cap 04/10/16 [Rx] Ondansetron HCl [Zofran] 4 mg PO Q6H PRN #30 tablet 04/10/16 [Rx] Prochlorperazine Maleate [Compazine] 10 mg PO Q6HR #30 tablet 04/10/16 [Rx] Desitin (Zinc Oxide) [Desitin] 1 appl TP BID #1 tube 04/18/16 [Rx] HydrOXYzine Pamoate [Vistaril] 100 mg PO DAILY #30 capsule 04/18/16 [Rx] Dexamethasone [Decadron] 4 mg PO DAILY #30 tab 04/25/16 [Rx] Escitalopram [Lexapro] 10 mg PO DAILY #30 tablet 05/09/16 [Rx] Citalopram [CeleXA] 20 mg PO DAILY #30 tablet 05/16/16 [Rx] Sucralfate [Carafate] 1 gm PO QIDAC #90 tablet 05/26/16 [Rx] FentaNYL PATCH [Duragesic] 75 mcg TD Q72H 06/02/16 [History] Polyethylene Glycol 3350 [MiraLAX Powder Bulk 17.9 Oz] 17 gm GTUBE DAILY [History] Thiamine Mononitrate [Vitamin B-1] 100 mg PO DAILY 06/02/16 [History] OxyCODONE Immed Rel [Roxicodone 5 MG] 5 mg PO Q6HR PRN #12 tablet 06/08/16 [Rx] Allergies/Adverse Reactions: Allergies levofloxacin [From Levaquin] Adverse Reaction (Intermediate, Verified 04/03/16 16:42) Anxiety Date of admission: 06/02/16 04:52 Primary care physician: PCP NO Consults: 06/02/16 05:13 Consult to Nutrition [CONS] Routine Comment: patient receives tube feeds at home. Consulting Provider: NUTRITION Reason for Dietary Consult: MST Score Consult to Photographic Printer [CONS] Routine Reason for SW Consult: Possible LTC need, rehab 06/02/16 05:58 Consult to Photographic Printer [CONS] Routine Reason for SW Consult: Accidental Opiate OD 06/02/16 14:03 Consult to Occupational Therapy [CONS] Routine Comment: Evaluate, develop and implement POC Consult to Physical Therapy [CONS] Routine Comment: Evaluate, develop and implement POC Discharging clinician: Vinny Powell Anticipated date of discharge: 06/08/16 - Patient Status Disposition: Home Health Service Condition: Good Functional capacity at discharge: independent ambulation Overall status at discharge: patient is progressing back to baseline - Discharge Instructions Instructions: Sepsis (DC), Pneumonia (DC) Follow Up With: Maribel La, SCIENTIFIC PHOTOGRAPHER [Advanced Practice Nurse] - (Web request sent 06/08/16, tried calling to set up an appointment and only recieved voicemail.) NO,PCP [Primary Care Provider] - Additional Instructions: Take medications as prescribed. Follow-up with pain management, discussed current opioid regimen and reduction of narcotics. Follow-up with her primary care physician the next 3-5 days. - Diet and Activity Activity: as per physical therapy Diet: advance to your usual diet Interval History: Ms. 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 Naproxen saturations are 65% she was suctioned through her tracheostomy and given IV Narcan with immediate results in increased in awareness. She was originally given clindamycin in the emergency department and admitted to the hospital service. Upon admission she continued to have altered mental status and difficulty obtaining history. She continued to receive antibiotic therapy for aspiration pneumonia and continued on oxygen therapy through tracheostomy. Upon admission her antibiotics were adjusted she was started on vancomycin but this was discontinued and she is continued on IV Zosyn only. During her inpatient stay her metabolic/toxic encephalopathy continued to improve. She did demonstrate hypernatremia secondary to dehydration was started on IV rehydration with improvement in her laboratory results and physical findings. IV fluids were discontinued and she was continued on free water and tube feedings through her G -tube. Respiratory was involved for her tracheostomy care. Laboratory results of significance demonstrate ALT of 2644 and AST of 471. Her statin was held and avoided hepatotoxic medications. With her history of cisplatin chemotherapy there is concern that she had transaminitis secondary from her chemotherapy. Her transaminitis improved throughout her inpatient stay. She was also admitted with history of present illness which quickly resolved after IV rehydration. Prior to discharge she was started back on 5 mg every 6 hours Roxicodone, which was a significant reduction compared to her home pain control. Home health care was established and set up for home. Patient completed inpatient antibiotic coverage. On the day of discharge she was seen and deemed stable for discharge home with home health care. A prescription for Roxicodone for 3 days was provided. It was highly suggested that she follow-up with her pain management doctor to review her current opioid coverage. At the time of discharge I discontinued her Roxicodone 15-30 mg every 3 hours. She needs to discuss appropriate opioid treatments. Hospital course: Ms. Koenig is a 50 year old female - Time Spent with Patient Total time spent providing and/or coordinating discharge services: - Constitutional Vitals: Temp Pulse Resp BP Pulse Ox 97.9 F 65 16 138/68 98 06/08/16 09:55 06/08/16 09:55 06/08/16 09:55 06/08/16 09:55 06/08/16 09:55 General appearance: Present: cooperative, A&O X 2 - Head Head exam: Present: atraumatic, normocephalic - Eye Eye exam: Present: PERRL, conjuntiva pink, sclera anicteric Pupils: Present: PERRL - ENT ENT exam: Present: mucous membranes moist Additional comments: Trach stable. - Neck Neck exam general surgery: Present: supple, trachea midline. Absent: lymphadenopathy - Respiratory Respiratory exam: Present: CTAB. Absent: accessory muscle use, rales, rhonchi, wheezes - Cardiovascular Cardiovascular exam: Present: RRR, +S1, +S2. Absent: diastolic murmur, gallop, rubs, systolic murmur - GI/Abdominal GI/Abdominal exam: Present: normal bowel sounds, soft, no peritoneal signs. Absent: distended, tenderness - Extremities Exam Extremities exam: Present: warm, radial pulses palpable and symetrical. Absent : calf tenderness, cyanotic, pedal edema <Donny Smith - Last Filed: 06/08/16 18:01> Date of Encounter: 06/08/16 Date of admission: 06/02/16 04:52 Primary care physician: PCP NO Consults: 06/02/16 05:13 Consult to Nutrition [CONS] Routine Comment: patient receives tube feeds at home. Consulting Provider: NUTRITION Reason for Dietary Consult: MST Score Consult to Photographic Printer [CONS] Routine Reason for SW Consult: Possible LTC need, rehab 06/02/16 05:58 Consult to Photographic Printer [CONS] Routine Reason for SW Consult: Accidental Opiate OD 06/02/16 14:03 Consult to Occupational Therapy [CONS] Routine Comment: Evaluate, develop and implement POC Consult to Physical Therapy [CONS] Routine Comment: Evaluate, develop and implement POC Hospital course: Ms. Koenig is a 50 year old female - Time Spent with Patient Total time spent providing and/or coordinating discharge services: - Constitutional Vitals: Temp Pulse Resp BP Pulse Ox 97.9 F 65 16 138/68 98 06/08/16 09:55 06/08/16 09:55 06/08/16 09:55 06/08/16 09:55 06/08/16 09:55 - Attending Attestation I examined this patient and my medical decision-making was reviewed with the EMERGENCY DEPARTMENT DIRECTOR/PA/Advanced Practice Nurse/Resident Physician. I agree with the documented findings, disposition and treatment plan as described except to the extent set forth below. Agree with Dr. Powell, cautious use of opiates as outpatient. Potassium WNL today. Follow up with pcp and painter helper sign.
--- NOTE | 2016-06-08 11:01 | Physician Discharge Referral ---
Addendum entered and electronically signed by Vinny Powell DO 06/08 13:29: Patient requires Nursing care. Original Note: Home Health/Hosp Referral Info Transfer to: Home Health Provider in Charge Post Discharge: PCP - Diagnosis (1) Hypomagnesemia Priority: Primary Status: Acute (2) Hypokalemia Priority: Primary Status: Acute (3) Accidental opiate poisoning Priority: Primary Status: Acute (4) Pneumonia Priority: Primary Status: Acute (5) LINNEA (acute kidney injury) Priority: Primary Status: Acute (6) Acute encephalopathy Priority: Primary Status: Acute (7) COPD (chronic obstructive pulmonary disease) Priority: Secondary Status: Chronic (8) Throat cancer Priority: Secondary Status: Acute (9) Transaminitis Priority: Primary Status: Acute (10) Tobacco abuse disorder Priority: Secondary Status: Chronic - Respiratory Orders Smoking Cessation: Smoking cessation has been advised. For more information, call the [place] Tobacco Quit Line at 2-543-BFEB-NOW. - Diet/Nutrition Diet/Nutrition: List: Tube feedings - Activity Activity Orders: Ambulate - Services Needed Following services are medically necessary services: Home Health Aide, Physical Therapy, Occupational Therapy - Transfer Medications Prescriptions: OxyCODONE Immed Rel [Roxicodone 5 MG] 5 mg PO Q6HR PRN #12 tablet PRN Reason: Pain Home Medications: Gabapentin 250 mg PO Q8H 12/16/15 [History] Aspirin [Lo-Dose Aspirin EC] 81 mg PO DAILY 03/15/16 [History] Fluticasone/Salmeterol [Advair 100-50 Diskus] 1 puff IH Q12H 03/15/16 [History] Metoprolol [Lopressor] 12.5 mg PO BID 03/15/16 [History] Nut.tx.comp. Immune Systm,Reg [Pivot 1.5 Bhavin] 1 unit GTUBE 5XD 03/15/16 [History ] Sennosides [Senokot] 8.6 mg PO DAILY 03/15/16 [History] Magic Mouthwash 5 ml PO TID PRN #240 mls 04/10/16 [Rx] Omeprazole [PriLOSEC] 20 mg PO DAILY #30 cap 04/10/16 [Rx] Ondansetron HCl [Zofran] 4 mg PO Q6H PRN #30 tablet 04/10/16 [Rx] Prochlorperazine Maleate [Compazine] 10 mg PO Q6HR #30 tablet 04/10/16 [Rx] Desitin (Zinc Oxide) [Desitin] 1 appl TP BID #1 tube 04/18/16 [Rx] HydrOXYzine Pamoate [Vistaril] 100 mg PO DAILY #30 capsule 04/18/16 [Rx] Dexamethasone [Decadron] 4 mg PO DAILY #30 tab 04/25/16 [Rx] Escitalopram [Lexapro] 10 mg PO DAILY #30 tablet 05/09/16 [Rx] Citalopram [CeleXA] 20 mg PO DAILY #30 tablet 05/16/16 [Rx] Sucralfate [Carafate] 1 gm PO QIDAC #90 tablet 05/26/16 [Rx] FentaNYL PATCH [Duragesic] 75 mcg TD Q72H 06/02/16 [History] Polyethylene Glycol 3350 [MiraLAX Powder Bulk 17.9 Oz] 17 gm GTUBE DAILY [History] Thiamine Mononitrate [Vitamin B-1] 100 mg PO DAILY 06/02/16 [History] OxyCODONE Immed Rel [Roxicodone 5 MG] 5 mg PO Q6HR PRN #12 tablet 06/08/16 [Rx] Allergies/Adverse Reactions: Allergies levofloxacin [From Levaquin] Adverse Reaction (Intermediate, Verified 04/03/16 16:42) Anxiety Certification: Further, I certify that my clinical findings support that this patient is homebound (i.e. absences from home require considerable and taxing effort and are for medical reasons or oriental orthodox services or infrequently or short duration when for other reasons) because: Homebound Reason: Patient requires assistance of a person or device to safely leave home, Leaving home requires considerable and taxing effort due to condition Attestation: My signature below is to certify that this patient is under my care and that I, or nurse practitioner, or a physician's senior assistant manager working with me, has a face-to -face encounter with this patient.
--- NOTE | 2016-06-08 13:28 | Internal Med Progress Note ---
Date of Encounter: 06/03/16 Time of Encounter: 08:00 - Assessment and plan (1) Pneumonia Current Visit: Yes Status: Acute Assessment and plan: continue IV antibiotics; no fever or leukocytosis; blood cultures remain negative; supplemental O2 and supportive care; PT evaluation noted; recommends ECF placement; Qualifiers: Pneumonia type: aspiration pneumonia Aspiration pneumonia type: unspecified Laterality: left Lung location: unspecified part of lung Qualified Code(s): J69.0 - Pneumonitis due to inhalation of food and vomit (2) Accidental opiate poisoning Current Visit: Yes Status: Acute Assessment and plan: improving mental status; continue to hold narcotics and sedatives; Qualifiers: Encounter type: initial encounter Qualified Code(s): T40.601A - Poisoning by unspecified narcotics, accidental (unintentional), initial encounter (3) Acute respiratory failure Current Visit: Yes Status: Acute Assessment and plan: due to Pneumonia and encephalopathy; continue supplemental O2 as needed; Qualifiers: Respiratory failure complication: hypoxia Qualified Code(s): J96.01 - Acute respiratory failure with hypoxia (4) Acute encephalopathy Current Visit: Yes Status: Acute (5) COPD (chronic obstructive pulmonary disease) Current Visit: Yes Status: Chronic Qualifiers: COPD type: unspecified COPD Qualified Code(s): J44.9 - Chronic obstructive pulmonary disease, unspecified (6) LINNEA (acute kidney injury) Current Visit: Yes Status: Acute Assessment and plan: continue IV hydration, serum creatinine noted to be improving; LINNEA due to poor oral intake and dehydration; (7) Head and neck cancer Current Visit: No Status: Acute (8) Transaminitis Current Visit: Yes Status: Acute - Subjective Interval history: Noted to be awake and alert today; able to respond by writing down answers; had an episode of vomiting around afternoon; continues to require supplemental O2; - Constitutional Vitals: Temp Pulse Resp BP Pulse Ox 97.9 F 65 16 138/68 98 06/08/16 09:55 06/08/16 09:55 06/08/16 09:55 06/08/16 09:55 06/08/16 09:55 General appearance: Present: cooperative, A&O X 2 - Respiratory Respiratory exam: Present: CTAB. Absent: accessory muscle use, rales, rhonchi, wheezes Additional comments: tracheostomy in place - Cardiovascular Cardiovascular exam: Present: RRR, +S1, +S2. Absent: diastolic murmur, gallop, rubs, systolic murmur - GI/Abdominal GI/Abdominal exam: Present: normal bowel sounds, soft, no peritoneal signs. Absent: distended, tenderness - Extremities Exam Extremities exam: Present: full ROM, warm, radial pulses palpable and symetrical. Absent: calf tenderness, cyanotic, pedal edema Internal Medicine: Result - Labs CBC & Chem 7: 06/08/16 04:23 06/08/16 04:23 Labs: Short CBC 06/08/16 Range/Units 04:23 WBC 5.4 (4.3-11.1) K/mcL Hgb 11.3 L (11.5-15.4) g/dL Hct 34.3 L (35.3-44.9) % Plt Count 140 (140-400) K/mcL Neutrophils # 3.7 (1.6-8.9) K/mcL BMP 06/08/16 04:23 Sodium 137 Potassium 3.6 Chloride 105 Carbon Dioxide 21 BUN 20 Creatinine 0.68 Glucose 76 Calcium 8.4 L Liver Function 06/08/16 06/08/16 Range/Units 04:23 04:23 Total Bilirubin 0.7 0.7 (0.2-1.2) mg/dL Direct Bilirubin 0.4 (0.0-0.5) mg/dL AST 34 35 H (5-34) Units/L ALT 443 H 446 H (0-55) Units/L Alkaline Phosphatase 105 106 (38-126) Units/L Albumin 2.0 L 2.1 L (3.5-5.0) g/dL - ABG Interpretation ABG results: ABG ABG pH 7.30 pH Units (7.32-7.45) L 06/02/16 07:57 ABG pCO2 59 mmHg (35-45) H 06/02/16 07:57 ABG pO2 120 mmHg (85-104) H 06/02/16 07:57 ABG O2 Saturation 98 % (95-98) 06/02/16 07:57 PT/INR, D-dimer PT 14.0 Seconds (9.4-12.1) H 06/05/16 04:17 Consult Discharge Plan - Plan Instructions: Sepsis (DC), Pneumonia (DC) Additional Instructions: Take medications as prescribed. Follow-up with pain management, discussed current opioid regimen and reduction of narcotics. Follow-up with her primary care physician the next 3-5 days. Referrals: NO,PCP [Primary Care Provider] - Prescriptions: OxyCODONE Immed Rel [Roxicodone 5 MG] 5 mg PO Q6HR PRN #12 tablet PRN Reason: Pain
== END 2016-06-08 14:30 | disposition home health service (06) | DRG 812 ==
LOC: 2ANU 22:41 → EMEROO 22:41 → 2ANU 06-02 02:44 → SUATTDRO 06-02 04:52
PROVIDERS: ADMIT Internal Medicine; ATTEND Internal Medicine